=== PATIENT | male | born 1980 | race Caucasian/White ===

== ENCOUNTER 2021-05-15 16:00 | Outpatient (CLI) | payer OTHER, SELFPAY ==
[2021-05-15 18:05] LABS: SARS-CoV-2 RNA PCR Negative (Negative)
== END 2021-05-15 16:01 | disposition home or self-care (01) ==
LOC: CHSLAB 16:04
PROVIDERS: PCP Family Medicine; Visit Provider Family Medicine
DX: Z20.822 Contact with and (suspected) exposure to COVID-19 (principal)
CPT/HCPCS: C9803; U0003; U0005

== ENCOUNTER 2021-08-09 13:31 | Outpatient (CLI) | payer OTHER, SELFPAY ==
[2021-08-09 14:33] LABS: SARS-CoV-2 RNA PCR Positive (Negative)
== END 2021-08-09 13:32 | disposition home or self-care (01) ==
LOC: CHSLAB 13:38
PROVIDERS: PCP Family Medicine; Visit Provider Nurse Practitioner Family
DX: U07.1 COVID-19 (principal)
CPT/HCPCS: C9803; U0003; U0005

== ENCOUNTER 2022-09-29 16:45 | Emergency (ER) | payer SELFPAY ==
[2022-09-29] VITALS (11 sets, daily range): BP systolic 137–196; BP diastolic 70–104; PULSE 83–94; RESP 14–20; TEMP 36.7–37.3; O2SAT 96–99
--- NOTE | ~2022-09-29 | XR_ITS ---
EXAMINATION: XR chest 1V portable Exam Date/Time: 09/29/2022 18:00 ROLL SCALE WORKER HISTORY: L SIDED CP, DIZZINESS,HTN,HIGH BLOOD SUGAR SINCE YESTERDAY Comparison: 08/17/2013. RESULT: Lines, tubes, and devices: None. Lungs and pleura: Slightly low lung volumes with crowding. Cardiomediastinal silhouette: Stable. Other: No acute osseous or upper abdominal finding. IMPRESSION: No acute cardiopulmonary process. Reviewed, dictated and finalized at location K. SCALE WORKER
--- NOTE | 2022-09-29 17:02 | ECG_ITS ---
Measurements Intervals [place] Rate: 90 P: 40 MA: 180 QRS: 36 QRSD: 85 T: 40 QT: 332 QTc: 406 Interpretive Statements SINUS RHYTHM WITH SINUS ARRHYTHMIA NONSPECIFIC ST & T-WAVE ABNORMALITY- INFERIOR LEADS BASELINE ARTIFACT- I, II, III, AVR, AVL, AVF, V1-V6 BORDERLINE ECG NO PREVIOUS ECG AVAILABLE FOR COMPARISON Electronically Signed On 09-29-2022 17:11:31 ASSOCIATE MERCHANDISE PLANNER by Michael eDnis D.O.
[2022-09-29 17:05] LABS: Glucose Point of Care 117 mg/dl (65-105)
--- NOTE | 2022-09-29 17:38 | ED.GENADULT ---
HPI - General Adult General Chief complaint: Dizziness Stated complaint: blood sugar is high, chest pain, dizzy History of Present Illness HPI narrative: the patient is a 41-year-old male with history of hypertension, anxiety, prediabetes, and GERD. He is a nonsmoker. Symptoms started yesterday with dizziness and generalized weakness. He slept most of the day. He did have an episode of diaphoresis. Today, since this morning, the patient has had intermittent left-sided chest discomfort radiating down the left arm, not currently present but was there earlier. , described as dull ache. He did check his glucose using his sister's glucometer and glucose level is 199. Does have nausea but no vomiting. Does have a headache. Blood pressure elevated in triage. Has taken 400 mg of ibuprofen for his headache. No motor or sensory deficits. No abdominal pain. No diaphoresis currently or vomiting. No dyspnea. No URI symptoms. Has had polydipsia with increased urination. No dysuria. Related Data Allergies Allergy/AdvReac Type Severity Reaction Status Date / Time No Known Allergies Allergy Verified 06/04/22 07:41 Review of Systems Review of Systems: All systems reviewed & are unremarkable except as noted in HPI and below Constitutional: Constitutional: Reports no additional constitutional complaints, Denies anorexia, Denies body ache(s), Denies chills, Denies excessive sweating, Reports fatigue, Denies fever(s), Denies frequent falls, Reports headache(s), Reports malaise and Denies poor appetite Eyes: Eyes: Reports no additional eye complaints, Denies blurry vision, Denies change in vision, Denies irritation, Denies itchy eyes and Denies photophobia ENT: Reports system reviewed and no additional complaints, except as documented, Reports Normal hearing present, Denies change in voice, Denies dysphagia, Denies vertigo, Reports dizziness, Denies ear discharge, Reports headache(s), Denies hearing loss, Denies hoarseness, Denies nasal congestion, Denies neck pain, Denies sinus pressure, Denies sore throat and Denies throat swelling Cardiovascular: Cardiovascular: Reports no additional cardiovascular complaints, Reports chest pain, Denies syncope, Denies rapid heart rate, Denies irregular heart rhythm, Denies leg edema, Reports radiating jaw, neck or arm pain ( Radiating only to the left arm, not jaw or neck), Denies dyspnea and Denies slow heart rate Respiratory: Respiratory: Reports no additional respiratory complaints, Denies cough, Denies dyspnea, Denies stridor and Denies wheezing Gastrointestinal: Gastrointestinal: Reports no additional gastrointestinal complaints, Denies abdominal pain, Denies melena, Denies hematochezia, Denies dysphagia, Denies diarrhea, Reports nausea and Denies vomiting Genitourinary: Genitourinary: Denies hematuria, Denies oliguria, Denies dysuria, Denies flank pain, Denies urinary frequency and Denies urinary urgency Musculoskeletal: Musculoskeletal: Reports no additional musculoskeletal complaints, Denies abnormal gait, Denies back pain, Denies myalgias, Denies arthralgias, Denies joint swelling, Denies limited range of motion, Denies muscle cramps, Denies muscle weakness, Denies neck pain and Denies numbness Integumentary/Breasts: Skin/Breast: Reports system reviewed and no additional complaints, except as docu, Denies breast pain, Denies change in pigmentation, Denies pruritus, Denies erythema and Denies wounds Neurologic: Reports system reviewed and no additional complaints, except as documented, Reports Normal hearing present, Denies Abnormal speech present, Denies abnormal gait, Denies confusion, Denies vertigo, Reports dizziness, Denies syncope, Denies frequent falls, Denies headache(s), Denies focal weakness, Denies numbness and Denies paresthesias Psychiatric: Psychiatric: Reports no additional psychiatric complaints and Denies confusion Endocrine: Endocrine: Reports no additional endocrine complaints, Denies col
[2022-09-29] MEDS: SODIUM CHLORIDE 0.9% IV 1,000 ML 999 ML IV CONT (17:54)
[2022-09-29] MEDS: hydrALAZINE HCL 20 MG/ML VIAL IV PUSH ×2 (17:55→20:40)
[2022-09-29 17:57] LABS: Hematocrit 43.7 % (40.0-54.0); Hemoglobin 15.2 g/dL (14.0-18.0); Mean Corpuscular HGB Conc 34.8 g/dL (32.0-36.0); Mean Corpuscular Hemoglobin 30.5 pg (27.0-31.0); Mean Corpuscular Volume 87.6 fL (78.0-102.0); Mean Platelet Volume 9.7 fl (8.7-11.0); Platelet Count Result 189 K/mm3 (150-420); Red Blood Count 4.99 M/mm3 (4.70-6.10); Red Cell Distribution Width 12.5 % (11.6-14.4); White Blood Count 4.9 K/mm3 (4.8-10.8)
[2022-09-29 17:57] LABS: Add Urine Microscopic? YES; Appearance Urine Clear (Clear); Bilirubin Urine Negative (Negative); Blood Urine Trace-Intact (Negative); Color Urine Light Yellow (Yellow); Glucose Urine UA Negative (Negative); Ketones Urine Negative (Negative); Leukocyte Esterase Ur Negative LEU/UL (Negative); Nitrate Urine Negative (Negative); Protein Urine Negative (Negative); Specific Grav Ur <= 1.005 (1.010-1.020); Urobilinogen Urine 0.2 mg/dL (0.2-1.0)
[2022-09-29] MEDS: ONDANSETRON INJ 4 MG/2 ML VIAL IV PUSH (17:57)
[2022-09-29] MEDS: KETOROLAC 30 MG/ML VIAL (*BKC) IV PUSH (17:58)
[2022-09-29 18:11] LABS: Amphetamine Screen Urine Negative (Negative); Barbiturate Screen Urine Negative (Negative); Benzodiazepines Screen Urine Negative (Negative); Cannabinoid Screen Urine Negative (Negative); Cocaine Screen Urine Negative (Negative); Methadone Screen Urine Negative (Negative); Opiate Screen Urine Negative (Negative); Phencyclidine Screen Urine Negative (Negative)
[2022-09-29 18:12] LABS: Bacteria Urine None seen /hpf; RBC Urine 0-2 /hpf (0-2); Squamous Epithelial Cell Urine None seen /hpf (Few); WBC Urine 0-3 /hpf (0-3)
[2022-09-29 18:17] LABS: Alanine Aminotransferase 49 U/L (16-63); Albumin Level 3.6 g/dL (3.4-5.0); Alkaline Phosphatase 77 U/L (46-116); Amylase 47 U/L (25-115); Anion Gap 8 mmol/L (8-16); Aspartate Amino Transferase 22 U/L (15-37); Bilirubin,Total 0.6 mg/dL (0.00-1.00); Blood Urea Nitrogen 20 mg/dL (7-18); Calcium 8.4 mg/dL (8.5-10.1); Carbon Dioxide 28 mmol/L (21-32); Chloride 99 mmol/L (98-108); Estimated CRCL calculation 92 ml/min; Estimated Glomerular Filt Rate > 60; Glucose 120 mg/dL (70-99); Lipase 33 U/L (16-77); Osmolality Calculated 283 mOsm/kg (285-295); Potassium 3.9 mmol/L (3.5-5.1); Sodium 135 mmol/L (136-145); Total Protein 7.1 g/dL (6.4-8.2)
[2022-09-29 18:18] LABS: Band Neutrophils Percent 0 % (0-6); Basophils Absolute Manual 0.04 K/mm3 (0-0.1); Basophils Percent Manual 1 % (0-1); Eosinophils Percent Manual 0 % (1-6); Ethanol < 3 mg/dL (0-6); Lymphocytes Absolute Manual 1.27 K/mm3 (1.1-4.5); Lymphocytes Percent Manual 26 % (18-44); Monocytes Absolute Manual 0.88 K/mm3 (0.1-0.90); Monocytes Percent Manual 18 % (3-9); Neutrophils Absolute Manual 2.69 K/mm3 (1.3-6.7); Neutrophils Percent Manual 55 % (46-73); Platelet Estimate Adequate (Adequate)
[2022-09-29 18:20] LABS: D Dimer 0.81 mg/L (0.19-0.50)
--- NOTE | 2022-09-29 18:24 | PC.NURSE ---
LAB REPORTED D DIMER 0.81, DR YOUSSEF NOTIFIED.
[2022-09-29 18:33] LABS: Influenza A QL RT-PCR Negative (Negative); Influenza B QL RT-PCR Negative (Negative); SARS-CoV-2 RNA PCR Positive (Negative)
[2022-09-29 18:34] LABS: Acetone Negative (Negative)
[2022-09-29 18:34] LABS: RSV RNA, RT-PCR Negative (Negative)
[2022-09-29 21:13] LABS: Troponin I 6.9 ng/L (0.00-60.4)
== END 2022-09-29 21:35 | disposition home or self-care (01) ==
PROVIDERS: Emergency Provider Emergency Medicine; PCP Family Medicine
DX: I16.0 Hypertensive urgency (principal); U07.1 COVID-19; R07.9 Chest pain, unspecified; F41.9 Anxiety disorder, unspecified; Z87.891 Personal history of nicotine dependence
CPT/HCPCS: 36415; 71045; 80053; 80307; 81001; 82010; 82150; 82948; 83690; 83735; 84484; 85025; 85380; 87637; 93005; 96361; 96374; 96375; 96376; 99284; J0360; J1885; J2405; J7030

== ENCOUNTER 2023-09-02 11:26 | Emergency (ER) | payer BC, MEDICAID, SELFPAY ==
[2023-09-02] VITALS (15 sets, daily range): BP systolic 153–184; BP diastolic 95–109; PULSE 79–100; RESP 14–20; TEMP 36.9; O2SAT 95–99
--- NOTE | ~2023-09-02 | XR_ITS ---
EXAMINATION: XR chest 1V portable DATE: 09/02/2023 12:11 INDICATION: Interscapular pain TECHNIQUE: frontal view of the chest was obtained. COMPARISON: Chest radiograph dated 09/29/2022 FINDINGS: The lungs remain clear with no focal airspace opacities, pulmonary edema, pleural effusion or pneumot horax. The cardiomediastinal silhouette is normal. Visualized bones and soft tissues are unremarkable . IMPRESSION: 1. No acute cardiopulmonary disease. Reviewed, dictated and finalized at location A. ER ENGINEER HELPER
--- NOTE | 2023-09-02 11:35 | ED.DIZZY ---
HPI - Dizziness General Chief Complaint: Dizziness Stated Complaint: dizziness Time Seen by Provider: 09/02/23 11:26 Source: patient Mode of arrival: ambulatory Limitations: no limitations History of Present Illness HPI Narrative: 42-year-old male with a history smoking,JOHAN GERD, hypertension, PORSCHE presents to the ER -- dizziness/ lightheadedness which is worse on standing which has been going on the past 3 days -- interscapular for the past 5-7 days. The pain radiates to his neck. No chest pain. -- Has nausea without any vomiting or diarrhea. No fever or chills. No neuro deficits. MD elicited complaint: dizziness and lightheadedness Onset (ago): day(s) ( Two days) Timing: gradual onset Severity: moderate Description: lightheadedness Context: change in body position History of similar symptoms: No Exacerbating factors: change in body position Relieving factors: nothing Associated symptoms: nausea Related Data Allergies Allergy/AdvReac Type Severity Reaction Status Date / Time No Known Allergies Allergy Verified 02/26/23 11:25 Review of Systems Review of Systems: All systems reviewed & are unremarkable except as noted in HPI and below Constitutional: Constitutional: Reports as per HPI and Reports no additional constitutional complaints Eyes: Eyes: Reports as per HPI and Reports no additional eye complaints ENT: Reports system reviewed and no additional complaints, except as documented and Reports as per HPI Cardiovascular: Cardiovascular: Reports as per HPI and Reports no additional cardiovascular complaints Respiratory: Respiratory: Reports as per HPI and Reports no additional respiratory complaints Comments: interscapular pain which radiates to the neck Gastrointestinal: Gastrointestinal: Reports as per HPI, Reports no additional gastrointestinal complaints and Reports nausea Genitourinary: Genitourinary: Reports no additional male genitourinary complaints Musculoskeletal: Musculoskeletal: Reports no additional musculoskeletal complaints and Reports as per HPI Integumentary/Breasts: Skin/Breast: Reports system reviewed and no additional complaints, except as docu and Reports as per HPI Neurologic: Reports system reviewed and no additional complaints, except as documented and Reports as per HPI Psychiatric: Psychiatric: Reports no additional psychiatric complaints and Reports as per HPI Endocrine: Endocrine: Reports no additional endocrine complaints and Reports as per HPI Hematologic/Lymphatic: Hematologic/Lymphatic: Reports no additional hematologic/lymphatic complaints and Reports as per HPI Allergic/Immunologic: Allergic/Immunologic: Reports no additional allergic/immunologic complaints and Reports as per HPI PMFSH Past Medical History Medical History JOHAN (generalized anxiety disorder) GERD (gastroesophageal reflux disease) Healthcare maintenance Hypertension Polydipsia (08/13/17) Surgical History Surgical History No history of previous surgery Family History Family History Mother Hypertension Father Hypertension Social History Social History Smoking status: Former smoker Tobacco type: cigarettes Smokeless tobacco user: chewing tobacco Alcohol intake: current Alcohol use details: weekly Substance use: never Substance use type: does not use Lack of Transportation: No Lack of Food: Never True Current Housing: I Have Housing Concerned About Future Housing: No Difficulty Paying Gas/Electric Bills: YES Difficulty Paying for Meds: No Currently Unemployed: No Education: Trade/Vocational Certificate Difficulty w/ Childcare or Family Care: No Living arrangements: with family Additional living arrangements comments: . Occ
--- NOTE | 2023-09-02 11:52 | ECG_ITS ---
Measurements Intervals [place] Rate: 80 P: 56 [place]: 179 QRS: 53 QRSD: 105 T: 12 QT: 354 QTc: 409 Interpretive Statements SINUS RHYTHM NONSPECIFIC T-WAVE ABNORMALITY COMPARED TO ECG 09/29/2022 17:07:42 NO SIGNIFICANT CHANGES Electronically Signed On 09-02-2023 13:14:01 ASSISTANT OFFSET PRESS OPERATOR by Elizabeth Lozano M.D.
[2023-09-02 12:12] LABS: Basophils Absolute Auto 0.05 K/mm3 (0.00-0.10); Basophils Percent Auto 0.8 % (0.0-1.0); Eosinophils Absolute Auto 0.12 K/mm3 (0.02-0.50); Eosinophils Percent Auto 1.8 % (1.0-6.0); Hematocrit 47.6 % (40.0-54.0); Hemoglobin 16.1 g/dL (14.0-18.0); Immature Granulocyte Absolute 0.04 K/mm3 (0.00-0.00); Immature Granulocyte Percent A 0.6 % (0.0-0.0); Lymphocytes Absolute Auto 2.78 K/mm3 (1.10-4.50); Lymphocytes Percent Auto 42.1 % (18.0-42.0); Mean Corpuscular HGB Conc 33.8 g/dL (32.0-36.0); Mean Corpuscular Hemoglobin 29.5 pg (27.0-31.0); Mean Corpuscular Volume 87.3 fL (78.0-102.0); Mean Platelet Volume 9.6 fl (8.7-11.0); Monocytes Percent Auto 9.1 % (2.0-11.0); Neutrophils Percent Auto 45.6 % (50.0-70.0); Platelet Count Result 243 K/mm3 (150-420); Red Blood Count 5.45 M/mm3 (4.70-6.10); Red Cell Distribution Width 12.6 % (11.6-14.4); White Blood Count 6.6 K/mm3 (4.8-10.8)
[2023-09-02 12:25] LABS: D Dimer 0.22 mg/L (0.19-0.50)
[2023-09-02 12:31] LABS: Partial Thromboplastin Time 27.2 SEC (23.90-30.70); Prothrombin Time 10.9 Seconds (9.50-12.10)
[2023-09-02 12:32] LABS: Lactic Acid Reflex 1.1 mmol/L (0.4-2.0)
[2023-09-02 12:35] LABS: Troponin I 6.1 ng/L (0.00-60.4)
[2023-09-02 12:38] LABS: Alanine Aminotransferase 42 U/L (16-63); Albumin Level 3.7 g/dL (3.4-5.0); Alkaline Phosphatase 85 U/L (46-116); Anion Gap 6 mmol/L (8-16); Aspartate Amino Transferase < 10 U/L (15-37); Bilirubin,Total 0.3 mg/dL (0.00-1.00); Blood Urea Nitrogen 32 mg/dL (7-18); Calcium 9.7 mg/dL (8.5-10.1); Carbon Dioxide 31 mmol/L (21-32); Chloride 100 mmol/L (98-108); Estimated CRCL calculation 79 ml/min; Estimated Glomerular Filt Rate 58; Glucose 130 mg/dL (70-99); Osmolality Calculated 292 mOsm/kg (285-295); Potassium 4.3 mmol/L (3.5-5.1); Sodium 137 mmol/L (136-145); Total Protein 7.2 g/dL (6.4-8.2)
== END 2023-09-02 13:34 | disposition home or self-care (01) ==
PROVIDERS: Emergency Provider Internal Medicine Critical Care Medicine; PCP Family Medicine
DX: I12.9 Hypertensive chronic kidney disease with stage 1 through stage 4 chronic kidney disease, or unspecified chronic kidney disease (principal); N18.31 Chronic kidney disease, stage 3a; R42 Dizziness and giddiness; Z87.891 Personal history of nicotine dependence
CPT/HCPCS: 36415; 71045; 80053; 83605; 84484; 85025; 85380; 85610; 85730; 93005; 99284